=== PATIENT | female | born 1955 | race Caucasian/White ===

== ENCOUNTER 2022-06-05 19:19 | Emergency (ER) | payer OTHER, SELFPAY ==
[2022-06-05 20:14] VITALS: BP 217/77; PULSE 67; RESP 17; TEMP 36.7; O2SAT 100; BMI 31.8
--- NOTE | 2022-06-05 20:36 | DI.CT.S_ITS ---
PROCEDURE: CT KIDNEY URETER BLADDER (KUB) INDICATIONS: Right flank pain, likley stone TECHNIQUE: Axial sections were acquired from the lung bases to the pubic symphysis. Coronal and sagittal reformats were performed. For radiation dose reduction, the following was used: automated exposure control, adjustment of mA and/or kV according to patient size. COMPARISON: None. FINDINGS: Image quality: Excellent. Lung bases: There is minimal atelectasis. Heart: Heart is normal in size. URINARY: Right Kidney and Ureter: No stones or hydronephrosis. Multiple parapelvic renal cysts are present. No perinephric stranding. No hydroureter. Left Kidney and Ureter: No stones or hydronephrosis. Numerous parapelvic renal cysts are present. No perinephric stranding. No hydroureter. Bladder: Normal wall thickness. No stones. ABDOMEN: Liver: Noncontrast evaluation of the liver demonstrates demonstrates a small hypodensity in the right hepatic lobe measuring up to 0.4 cm which is too small to characterize but likely represents a cyst. Gallbladder: Within normal limits without calcified gallstones. Biliary ducts: No biliary ductal dilatation. Pancreas: Unremarkable. Spleen: Normal in size. Adrenal Glands: No adrenal nodules. Stomach and Bowel: Stomach, small bowel loops, and colon are normal in caliber and wall thickness. The appendix is normal in appearance. There is colonic diverticulosis without acute diverticulitis. Peritoneum: No abnormal intraperitoneal fluid. No free air. Ventral Wall: No hernia. Abdominal Nodes: No retroperitoneal or mesenteric adenopathy by size criteria. Vessels: Aorta and inferior vena cava are normal in size. PELVIS: Pelvic Organs: Unremarkable. Pelvic Nodes: No enlarged lymph nodes. Miscellaneous: No inguinal hernias identified. Bones: Visualized osseous structures demonstrate no suspicious focal lesions. IMPRESSION: 1. No evidence of nephrolithiasis or obstructive uropathy. 2. Multiple bilateral parapelvic renal cysts. 3. No evidence of appendicitis. Dictated by: Yash Cohen M.D. on 06/05/2022 at 22:02 Approved by: Yash Cohen M.D. on 06/05/2022 at 22:05
[2022-06-05 20:48] LABS: Add Manual Diff / Slide Review NO; Basophils Absolute Auto 100 /uL (0-100); Eosinophils Absolute Auto 200 /uL (0-450); Eosinophils Percent Auto 3.6 % (2-4); Hematocrit 40.4 % (36-46); Hemoglobin 13.7 g/dL (12.0-16.0); Lymphocytes Absolute Auto 1300 /uL (1100-4500); Mean Corpuscular HGB Conc 33.8 % (30-36); Mean Corpuscular Hemoglobin 31.7 PG (26-34); Mean Corpuscular Volume 93.8 fL (80-100); Monocytes Absolute Auto 700 /uL (0-900); Monocytes Percent Auto 11.9 % (3-14); Neutrophils Absolute Auto 3300 /uL (1500-7000); Neutrophils Percent Auto 59.5 % (50-75); Platelet Count 235 X10^3/uL (150-400); Red Blood Cell Count 4.31 X10^6/uL (4.0-5.2); Red Cell Distribution Width 14.1 % (11.6-14.8); White Blood Cell Count 5.5 X10^3/uL (4.5-11.0)
[2022-06-05 20:53] LABS: Bacteria Urine Many (>30); Culture Indicated Urine Specimen Cultured; RBC Urine 1-5/HPF (0-5/HPF); Squamous Epithelial Cell Urine 1-5 /HPF (0-5/HPF); WBC Urine 5-10/HPF (0-5/HPF)
[2022-06-05 20:55] LABS: Alanine Aminotransferase 16 IU/L (<35); Albumin 4.3 g/dL (3.5-5.0); Albumin Globulin Ratio 1.1 (1.0-2.8); Alkaline Phosphatase 94 U/L (38-126); Aspartate Aminotransferase 29 IU/L (14-36); BUN Creatinine Ratio 20.5 (6-22); Bilirubin Total 0.3 mg/dL (0.2-1.3); Blood Urea Nitrogen 18 mg/dL (7-17); Carbon Dioxide 27 mmol/L (22-32); Chloride 107 mmol/L (98-107); Estimated Glomerular Filt Rate > 60 mL/min (>60); Globulin 3.9 g/dL (1.7-4.1); Glucose 132 mg/dL (80-110); HEMOLYSIS < 15 (0-50); Potassium 3.7 mmol/L (3.4-5.1); Sodium 143 mmol/L (137-145); Total Protein 8.2 g/dL (6.3-8.2)
[2022-06-05] MEDS: KETOROLAC 30 MG/ML VIAL 15 MG IV (22:17)
[2022-06-05] MEDS: ONDANSETRON 4 MG/2 ML INJ IV (22:17)
[2022-06-05] MEDS: SODIUM CHLORIDE 0.9% 1,000 ML 1000 ML IV (22:17)
[2022-06-05 22:26] VITALS: BP 179/74; PULSE 61; RESP 17; O2SAT 96
--- NOTE | 2022-06-06 00:01 | ED.GENADULT ---
HPI - General Adult General Chief complaint: Urogenital-Female Stated complaint: Back right pain Time Seen by Provider: 06/05/22 20:36 Source: patient Mode of arrival: Ambulatory History of Present Illness HPI narrative: 67-year-old woman with a distant history of kidney stones and recurrent bladder infections presents with dysuria, frequency and right flank pain. Been progressing over the last 2-3 days. She is currently on estradiol vaginal cream to prevent urinary tract infections and has not had 1 or had urinary issues for number of years. She denies fevers, cough, chills. She has been somewhat nauseated has had some mild diffuse abdominal pain has not had any constipation or diarrhea and no vaginal discharge. She has not noticed hematuria. Related Data Home Medications Medication Instructions Recorded Confirmed d-mannose each PO 07/02/20 08/04/21 Previous Rx's Medication Instructions Recorded estradiol 0.01% (0.1 mg/gram) 1 g vaginal 2XW #42.5 grams 08/01/21 vaginal cream (Estrace) amoxicillin 875 mg-potassium 1 tab PO BID #20 tabs 06/06/22 clavulanate 125 mg tablet Allergies Allergy/AdvReac Type Severity Reaction Status Date / Time iodine Allergy Verified 08/04/21 10:58 Sulfa (Sulfonamide Allergy Verified 08/04/21 10:58 Antibiotics) Review of Systems Review of Systems Narrative: Remainder of complete review of systems is otherwise unremarkable except for that included in the HPI. Patient History Medical History (Updated 06/06/22 @ 00:14 by Bronwyn York MD) Arthritis Chronic UTI FH: total knee replacement Kidney stone Surgical History H/O section History of knee replacement Social History Smoking Status: Never smoker Smoking Status: Never smoker alcohol intake frequency: 0-2 drinks per day Substance Use Type: does not use Exam Initial Vital Signs Initial Vital Signs: Vital Signs Temperature 98.0 F 06/05/22 20:14 Pulse Rate 67 06/05/22 20:14 Respiratory Rate 17 06/05/22 20:14 Blood Pressure 217/77 H 06/05/22 20:14 Pulse Oximetry 100 06/05/22 20:14 Oxygen Delivery Method 06/05/22 20:14 General: Healthy appearing, in mild distress secondary to flank pain on the right side. Able to give a complete and coherent history. Well-nourished well-developed HEENT: Moist mucous membranes, normal sclera with reactive pupils, Neck: No JVD, supple Respiratory: Lungs are clear to auscultation, no wheezing no rales no rhonchi. Full and symmetrical air movement Cardiac: Regular rate and rhythm no murmurs no bruits Abdomen: Soft, mild diffuse tenderness without rebound or guarding good bowel tones, mild right-sided flank pain Skin: Warm and dry, no rashes Neurologic: Grossly neurologically intact with no obvious asymmetries or abnormalities Extremities: No trauma, well perfused Psych: Cooperative, appropriate insight and affect Course Orders Ordered: ED Orders 06/05/22 20:26 Urine Culture Stat Urine Microscopic Stat 06/05/22 20:28 CMP [Comprehensive Metabolic Panel] Stat Complete Blood Count AUTO DIFF Stat 06/05/22 20:36 CT kidney ureter bladder (KUB) Stat Discontinued Medications Sodium Chloride (Normal Saline 0.9%) 1,000 mls @ 1,000 mls/hr IV BOLUS ONE Stop: 06/05/22 21:35 Last Admin: 06/05/22 22:17 Dose: 1,000 mls/hr Documented By: KHLOE Ketorolac Tromethamine (Ketorolac 30 Mg/Ml Vial) 15 mg IV NOW ONE Stop: 06/05/22 20:37 Last Admin: 06/05/22 22:17 Dose: 15 mg Documented By: KHLOE Ondansetron HCl (Ondansetron 4 Mg/2 Ml Inj) 4 mg IV NOW ONE Stop: 06/05/22 20:37 Last Admin: 06/05/22 22:17 Dose: 4 mg Documented By: KHLOE Vital Signs Vital signs: Vital Signs - 8 hr 06/05/22 20:14 06/05/22 22:26 Temperature 98.0 F Pulse Rate 67 61 Respiratory Rate 17 17 Blood Pressure 217/77 H 179/74 H Pulse Oximetry 100 96 Oxygen Delivery Method Room Air Room Air Medical Decision Making Lab Data Result diagrams: 06/05/22 20:28 06/05/22 20:28 Labs: Lab Results 06/05/22 06/05/22 06/05/22 Range/Units 20:26 20:28 20:28 WBC 5.5 (4.5-11.0) X10^3/uL RBC 4.31 (4.0-5.2) X10^6/uL Hgb 13.7 (12.0-16.0) g/dL Hct 40.4 (36-46) % MCV 93.8 (80-100) fL MCH 31.7 (26-34) PG MCHC 33.8 (30-36) % RDW 14.1 (11.6-14.8) % Plt Count 235 (150-400) X10^3/uL Neut % (Auto) 59.5 (50-75) % Lymph % (Auto) 24.0 L (25-40) % [place] % (Auto) 11.9 (3-14) % Eos % (Auto) 3.6 (2-4) % Baso % (Auto) 1.0 (0-2) % Neut # (Auto) 3300 (3934-4844) /uL Lymph # (Auto) 1300 (9591-3469) /uL [place] # (Auto) 700 (0-900) /uL Eos # (Auto) 200 (0-450) /uL Baso # (Auto) 100 (0-100) /uL Sodium 143 (137-145) mmol/L Potassium 3.7 (3.4-5.1) mmol/L Chloride 107 (98-107) mmol/L Carbon Dioxide 27 (22-32) mmol/L BUN 18 H (7-17) mg/dL Creatinine 0.88 (0.52-1.04) mg/dL Estimated GFR > 60 (>60) mL/min BUN/Creatinine Ratio 20.5 (6-22) Glucose 132 H (80-110) mg/dL Calcium 9.0 (8.4-10.2) mg/dL Total Bilirubin 0.3 (0.2-1.3) mg/dL AST 29 (14-36) IU/L ALT 16 (<35) IU/L Alkaline Phosphatase 94 (38-126) U/L Total Protein 8.2 (6.3-8.2) g/dL Albumin 4.3 (3.5-5.0) g/dL Globulin 3.9 (1.7-4.1) g/dL Albumin/Globulin Ratio 1.1 (1.0-2.8) Urine RBC 1-5/hpf (0-5/HPF) Urine WBC 5-10/hpf H (0-5/HPF) Ur Squamous Epith Cells 1-5 /hpf (0-5/HPF) Urine Bacteria Many (>30) H (None) Ur Culture Indicated? Specimen cultured Urine Dip Bedside Urine Glucose Negative Bedside Urine Bilirubin - Negative Bedside Urine Ketone - Negative Urine Specific [place] 1.020 Bedside Urine Occult Blood + Bedside Urine pH 6.0 Bedside Urine Protein - Negative Bedside Urine Urobilinogen - Negative Bedside Urine Nitrite - Negative Bedside Urine Leukocytes - Negative Esterase Point of care testing: Urine Dip Bedside Urine Glucose Negative Bedside Urine Bilirubin - Negative Bedside Urine Ketone - Negative Urine Specific [place] 1.020 Bedside Urine Occult Blood + Bedside Urine pH 6.0 Bedside Urine Protein - Negative Bedside Urine Urobilinogen - Negative Bedside Urine Nitrite - Negative Bedside Urine Leukocytes - Negative Esterase Imaging Data CT scan - abdomen/pelvis: Radiologist's Impression: FINDINGS:? Image quality:? Excellent.? ? Lung bases:? There is minimal atelectasis.? ? Heart:? Heart is normal in size. ? URINARY: Right Kidney and Ureter: ? No stones or hydronephrosis.? Multiple parapelvic renal cysts are present.? No perinephric stranding.? No hydroureter.? ? Left Kidney and Ureter: ? No stones or hydronephrosis.? Numerous parapelvic renal cysts are present.? No perinephric stranding.? No hydroureter. ? Bladder:? Normal wall thickness. No stones. ? ? ? ABDOMEN: Liver:? Noncontrast evaluation of the liver demonstrates demonstrates a small hypodensity in the right hepatic lobe measuring up to 0.4 cm which is too small to characterize but likely represents a cyst. Gallbladder:? Within normal limits without calcified gallstones.? ? Biliary ducts:? No biliary ductal dilatation.? ? Pancreas:? Unremarkable.? ? Spleen:? Normal in size.? ? Adrenal Glands:? No adrenal nodules.? ? ? Stomach and Bowel:? Stomach, small bowel loops, and colon are normal in caliber and wall thickness.? The appendix is normal in appearance.? There is colonic diverticulosis without acute diverticulitis.? Peritoneum:? No abnormal intraperitoneal fluid.? No free air.? ? Ventral Wall: ? No hernia.? Abdominal Nodes:? No retroperitoneal or mesenteric adenopathy by size criteria.? Vessels:? Aorta and inferior vena cava are normal in size.? ? PELVIS: Pelvic Organs:? Unremarkable.? ? Pelvic Nodes: No enlarged lymph nodes.? Miscellaneous: No inguinal hernias identified. ? ? ? Bones:? Visualized osseous structures demonstrate no suspicious focal lesions. IMPRESSION:? ? 1. No evidence of nephrolithiasis or obstructive uropathy. ? 2. Multiple bilateral parapelvic renal cysts. ? 3. No evidence of appendicitis.? Dictated by: Yash Cohen M.D. on 06/05/2022 at 22:02 ? ? MDM Narrative Medical decision making narrative: 67-year-old woman with a prior history of recurrent urinary tract infections that has not been an issue since starting estradiol vaginal cream. There are no prior urine cultures available in medical records for to base antibiotic treatment. Currently she has no signs of sepsis with a normal white blood cell count, afebrile, no tachycardia. Her pain is improved with a single dose of Toradol and fluid. CT KUB shows no evidence of stones, hydronephrosis, stranding around the kidney to suggest severe pyelonephritis she does have multiple bilateral parapelvic renal cysts. If she is given a dose of ceftriaxone in the emergency department and will be discharged home with 10 days of Augmentin and given her prior history of UTIs and the noted multiple renal cysts. If her symptoms do not improve or she has worsening findings will ask her to return to the emergency department. Did suggest that she continue the estradiol cream and would like her to follow-up with Dr. Nguyễn, her current urologist. Discharge Plan Departure Patient Disposition: Home Clinical Impression: Acute pyelonephritis due to bacteria Instructions: DI for Kidney Infection Activity Restrictions/Additional Instructions: Thank you for coming in today It does look like you have a bladder infection and with flank pain this is presumably also a kidney infection. Fortunately, there is no evidence of sepsis or infection spreading [address] scan does not suggest an obstructed kidney, acute kidney stones or alternate explanation that would require hospital stay. I have given you a dose of Toradol to help with pain in the emergency department. I am going to send you home with a couple of tablets of Percocet. This is Tylenol plus narcotic. If you are in significant pain you can certainly use this otherwise stick with just Tylenol. I am going to give you a longer course of antibiotics in the form of Augmentin for 10 days. Please start this tomorrow. You were given a single dose of IV antibiotics, ceftriaxone, in the emergency department. Your urine has been cultured and if it grows out a bacteria that suggests you need different antibiotics, we will give you a call The prescription was electronically transmitted to [facility] in [place] If you find that you are getting worse or develop any new symptoms, please feel free to return to the emergency department for further evaluation. I do want to call and schedule follow-up appointment with Dr. Nguyễn. I also recommend that you continue the estradiol cream as it does look like it has significantly reduced the overall incidence of urinary tract infections for you Prescriptions: New amoxicillin-pot clavulanate 875-125 mg tablet 1 tab PO BID Qty: 20 0RF No Action d-mannose Powder PO estradiol [Estrace] 0.01 % (0.1 mg/gram) cream 1 g VAG 2XW Qty: 42.5 0RF
[2022-06-06] MEDS: cefTRIAXone 2,000 MG in SODIUM CHLORIDE 0.9% 100 ML 200 MG IV (00:21)
[2022-06-06] MEDS: OXYCODONE/APAP 5/325 PREPACK 1 BOTTLE MISC (00:21)
[2022-06-06 00:39] VITALS: BP 146/65; PULSE 56; RESP 16; O2SAT 95
== END 2022-06-06 01:00 | disposition home or self-care (01) ==
PROVIDERS: Emergency Provider Emergency Medicine
DX: N10 Acute pyelonephritis (principal); B96.89 Other specified bacterial agents as the cause of diseases classified elsewhere
CPT/HCPCS: 36415; 74176; 80053; 81003; 81015; 85025; 87077; 87086; 87186; 96361; 96365; 96375; 99284; J0696; J1885; J2405